=== PATIENT | female | born 1965 | race African-American/Black ===

== ENCOUNTER 2022-10-13 07:44 | Emergency (ER) | payer MEDICARE, MEDICAID ==
[~2022-10-13] VITALS: Ht 165.1 cm; Wt 85.0 kg
[2022-10-13 08:12] LABS: EOSINOPHILS % 1.8 % (0.0-5.0); HEMATOCRIT. 31.5 % (36.0-48.0); HEMOGLOBIN. 10.5 g/dL (12.0-16.0); LYMPHOCYTES % 33.6 % (20.0-50.0); MEAN CORPUSCULAR HEMOGLOBIN 29.7 pg (28.0-32.0); MEAN CORPUSCULAR VOLUME 89.4 fL (81.0-99.0); MEAN PLATELET VOLUME 7.8 fl (7.4-10.4); MONOCYTES % 7.3 % (2.0-8.0); NEUTROPHILS % 56.3 % (40.0-76.0); PLATELET 472 x1000/uL (130-400); RED BLOOD CELL COUNT 3.52 mill/uL (4.2-5.4); RED CELL DISTRIBUTION WIDTH 14.4 % (11.6-14.6)
[2022-10-13 08:17] LABS: CHLORIDE 108 mEq/L (98-107)
[2022-10-13] MEDS ORDERED: MECLIZINE 25MG TABLET PO ONE (09:00)
[2022-10-13] MEDS ORDERED: MECL-159 PO (12:04)
[2022-10-13 12:23] VITALS: BP 127/68
== END 2022-10-13 12:27 | disposition home or self-care (01) ==
LOC: ER 08:08
DX: R42 Dizziness and giddiness (principal); R11.2 Nausea with vomiting, unspecified; E11.9 Type 2 diabetes mellitus without complications; E78.00 Pure hypercholesterolemia, unspecified; I10 Essential (primary) hypertension; F41.9 Anxiety disorder, unspecified; F32.A Depression, unspecified; Z90.710 Acquired absence of both cervix and uterus
CPT/HCPCS: 36415; 70450; 80053; 84484; 85025; 93005; 99285; J8597

== ENCOUNTER 2023-01-12 08:41 | Emergency (ER) | payer MEDICARE, MEDICAID ==
[~2023-01-12] VITALS: Ht 165.1 cm; Wt 87.0 kg
[~2023-01-12 08:41] MED LIST: MECL-159 PO
[2023-01-12 08:56] VITALS: TEMP 98.7; O2SAT 100
[2023-01-12] MEDS ORDERED: KETOROLAC 60MG/2ML VIAL IM STA (10:31)
[2023-01-12 11:29] VITALS: BP 151/65; PULSE 88; RESP 16
[2023-01-12 12:22] LABS: BASOPHILS % 0.7 % (0.0-2.0); EOSINOPHILS % 1.7 % (0.0-5.0); HEMATOCRIT. 31.9 % (36.0-48.0); HEMOGLOBIN. 10.2 g/dL (12.0-16.0); LYMPHOCYTES % 26.8 % (20.0-50.0); MEAN CORPUSCULAR HGB CONC 31.9 g/dL (31.0-37.0); MEAN CORPUSCULAR VOLUME 90.9 fL (81.0-99.0); MEAN PLATELET VOLUME 8.4 fl (7.4-10.4); MONOCYTES % 5.9 % (2.0-8.0); NEUTROPHILS % 64.9 % (40.0-76.0); PLATELET 469 x1000/uL (130-400); RED BLOOD CELL COUNT 3.51 mill/uL (4.2-5.4); RED CELL DISTRIBUTION WIDTH 14.8 % (11.6-14.6)
[2023-01-12 12:32] LABS: CHLORIDE 107 mEq/L (98-107); INDEX HEMOLYSI 1 (1-3); INDEX ICTERIC 1 (1-4); INDEX LIPEMIC 1 (1-3); POTASSIUM 4.5 mEq/L (3.5-5.1); SODIUM 138 mEq/L (136-145)
[2023-01-12 12:50] LABS: CALCIUM 9.3 mg/dL (8.5-10.1); CARBON DIOXIDE 26 mEq/L (21-32); CREATININE 0.8 mg/dL (0.6-1.3); UREA NITROGEN BLOOD 14 mg/dL (7-21)
[2023-01-12 13:31] LABS: CLARITY URINE CLEAR (CLEAR); COLOR URINE YELLOW (YELLOW); GLUCOSE URINE NEGATIVE (NEGATIVE); KETONES URINE NEGATIVE (NEGATIVE); LEUKOCYTE ESTERASE URINE NEGATIVE (NEGATIVE); NITRITE URINE NEGATIVE (NEGATIVE); OCCULT BLOOD URINE NEGATIVE (NEGATIVE); PROTEIN URINE NEGATIVE (NEGATIVE); SPECIFIC GRAVITY URINE 1.011 (1.005-1.030); UROBILINOGEN URINE 0.2 E.U./dL (0.2-1.0)
[2023-01-12 14:32] LABS: GLUCOSE 125 mg/dL (70-105)
== END 2023-01-12 14:28 | disposition home or self-care (01) ==
LOC: ER 08:41
DX: M79.652 Pain in left thigh (principal); M25.552 Pain in left hip; E11.9 Type 2 diabetes mellitus without complications; I10 Essential (primary) hypertension; Z98.890 Other specified postprocedural states
CPT/HCPCS: 99285; 93971; 80048; 81003; 85025; 36415; 96372; J1885

== ENCOUNTER 2023-05-28 09:50 | Emergency (ER) | payer MEDICARE, MEDICAID ==
[~2023-05-28] VITALS: Ht 165.1 cm; Wt 86.0 kg
[~2023-05-28 09:50] MED LIST changes: -MECL-159 PO; +MECL-299 PO
[2023-05-28 09:55] VITALS: O2SAT 100
[2023-05-28] MEDS ORDERED: METHYLPREDNISOLONE SOD SUCC 125MG/2ML (ACT-O-VIAL) IM STA (11:21)
[2023-05-28] MEDS ORDERED: KETOROLAC 60MG/2ML VIAL IM STA (11:21)
[2023-05-28] MEDS ORDERED: NAPR-681 PO (12:47)
[2023-05-28 12:48] VITALS: BP 146/48
[2023-05-28 12:53] VITALS: PULSE 80; RESP 12; TEMP 97.5
== END 2023-05-28 12:54 | disposition home or self-care (01) ==
LOC: ER 09:50
DX: M65.4 Radial styloid tenosynovitis [de Quervain] (principal); E11.9 Type 2 diabetes mellitus without complications; I10 Essential (primary) hypertension
CPT/HCPCS: 99284; 73110; 29125; 96372; J1885; J2930

== ENCOUNTER 2023-09-15 12:12 | Emergency (ER) | payer MEDICARE, MEDICAID ==
[~2023-09-15] VITALS: Ht 165.1 cm; Wt 90.0 kg
[~2023-09-15 12:12] MED LIST changes: +NAPR-681 PO
[2023-09-15 12:18] VITALS: O2SAT 100
[2023-09-15 13:16] LABS: ALANINE AMINOTRANSFERASE 10 IU/L (10-49); ALBUMIN 4.5 g/dL (3.2-4.8); ASPARTATE AMINOTRANSFERASE 18 IU/L (<34); BILIRUBIN TOTAL 0.5 mg/dL (0.1-1.0); CALCIUM 9.1 mg/dL (8.7-10.4); CARBON DIOXIDE 21 mEq/L (21-32); CHLORIDE 110 mEq/L (98-107); CREATININE 0.9 mg/dL (0.6-1.0); GLUCOSE 103 mg/dL (70-105); POTASSIUM 4.6 mEq/L (3.5-5.1); PROTEIN TOTAL 7.8 g/dL (6.0-8.3); SODIUM 139 mEq/L (136-145); UREA NITROGEN BLOOD 9 mg/dL (9-23)
[2023-09-15 13:18] LABS: BASOPHILS % 0.6 % (0.0-2.0); DIFFERENTIAL COMMENT 0; EOSINOPHILS % 1.6 % (0.0-5.0); HEMATOCRIT. 34.2 % (36.0-48.0); HEMOGLOBIN. 10.1 g/dL (12.0-16.0); MEAN CORPUSCULAR HEMOGLOBIN 29.9 pg (28.0-32.0); MEAN CORPUSCULAR HGB CONC 29.5 g/dL (31.0-37.0); MEAN CORPUSCULAR VOLUME 101.1 fL (81.0-99.0); MEAN PLATELET VOLUME 9.1 fl (7.4-10.4); MONOCYTES % 5.8 % (2.0-8.0); PLATELET 227 x1000/uL (130-400); RED BLOOD CELL COUNT 3.38 mill/uL (4.2-5.4); RED CELL DISTRIBUTION WIDTH 16.4 % (11.6-14.6); WHITE BLOOD COUNT 10.8 x1000/uL (4.5-11.0)
[2023-09-15] MEDS ORDERED: MAGNESIUM/ALUMINUM HYDROXIDE/SIMETHICONE 30ML UDC PO ONE (14:15)
[2023-09-15] MEDS ORDERED: ONDANSETRON 4MG ODT PO ONE (14:15)
[2023-09-15] MEDS ORDERED: PANTOPRAZOLE 40MG DR TABLET PO ONE (14:15)
[2023-09-15 14:50] LABS: CLARITY URINE CLEAR (CLEAR); COLOR URINE YELLOW (YELLOW); GLUCOSE URINE NEGATIVE (NEGATIVE); KETONES URINE NEGATIVE (NEGATIVE); LEUKOCYTE ESTERASE URINE NEGATIVE (NEGATIVE); NITRITE URINE NEGATIVE (NEGATIVE); OCCULT BLOOD URINE NEGATIVE (NEGATIVE); PROTEIN URINE NEGATIVE (NEGATIVE); SPECIFIC GRAVITY URINE 1.018 (1.005-1.030)
[2023-09-15] MEDS: MAGNESIUM/ALUMINUM HYDROXIDE/SIMETHICONE 30ML UDC PO NR (17:01)
[2023-09-15] MEDS: PANTOPRAZOLE 40MG DR TABLET PO NR (17:01)
[2023-09-15] MEDS: ONDANSETRON 4MG ODT PO NR (17:01)
[2023-09-15] MEDS ORDERED: MAG-55 MT (17:28)
[2023-09-15 18:17] VITALS: BP 145/53; PULSE 67; RESP 18; TEMP 98.2
== END 2023-09-15 18:25 | disposition home or self-care (01) ==
LOC: ER 13:24
DX: K21.9 Gastro-esophageal reflux disease without esophagitis (principal); E11.9 Type 2 diabetes mellitus without complications; I10 Essential (primary) hypertension
CPT/HCPCS: 99285; 71045; 80053; 81003; 83690; 85025; 36415; 93005; Q0162

== ENCOUNTER 2024-05-26 08:24 | Emergency (ER) | payer MEDICARE, MEDICAID ==
[~2024-05-26] VITALS: Ht 167.6 cm; Wt 91.0 kg
[~2024-05-26 08:24] MED LIST changes: +MAG-55 MT
[2024-05-26 08:36] VITALS: O2SAT 99
[2024-05-26] MEDS: SODIUM CHLORIDE 0.9% 1,000 ML IV ONE (09:21)
[2024-05-26 09:29] VITALS: TEMP 98.7
[2024-05-26] MEDS: MECLIZINE 25MG TABLET PO ONE (09:29)
[2024-05-26] MEDS: ACETAMINOPHEN 325MG TABLET PO ONE (09:29)
[2024-05-26 09:32] LABS: BASOPHILS % 0.8 % (0.0-2.0); EOSINOPHILS % 1.8 % (0.0-5.0); HEMATOCRIT. 31.8 % (36.0-48.0); HEMOGLOBIN. 10.3 g/dL (12.0-16.0); LYMPHOCYTES % 27.6 % (20.0-50.0); MEAN CORPUSCULAR HEMOGLOBIN 29.6 pg (28.0-32.0); MEAN CORPUSCULAR HGB CONC 32.5 g/dL (31.0-37.0); MEAN CORPUSCULAR VOLUME 91.1 fL (81.0-99.0); MEAN PLATELET VOLUME 8.4 fl (7.4-10.4); MONOCYTES % 7.2 % (2.0-8.0); NEUTROPHILS % 62.6 % (40.0-76.0); PLATELET 441 x1000/uL (130-400); RED BLOOD CELL COUNT 3.49 mill/uL (4.2-5.4); RED CELL DISTRIBUTION WIDTH 14.4 % (11.6-14.6); WHITE BLOOD COUNT 9.5 x1000/uL (4.5-11.0)
[2024-05-26 09:38] LABS: CHLORIDE 106 mEq/L (98-107); POTASSIUM 4.5 mEq/L (3.5-5.1); SODIUM 140 mEq/L (136-145)
[2024-05-26 09:39] LABS: CARBON DIOXIDE 27 mEq/L (21-32)
[2024-05-26 09:40] LABS: CALCIUM 9.8 mg/dL (8.7-10.4)
[2024-05-26 09:44] LABS: GLUCOSE 130 mg/dL (70-105); UREA NITROGEN BLOOD 19 mg/dL (9-23)
[2024-05-26 09:54] LABS: TROPONIN I HIGH SENSITIVITY < 4 ng/L (3.0-34)
[2024-05-26 10:00] LABS: CLARITY URINE CLEAR (CLEAR); COLOR URINE YELLOW (YELLOW); GLUCOSE URINE NEGATIVE (NEGATIVE); KETONES URINE NEGATIVE (NEGATIVE); LEUKOCYTE ESTERASE URINE NEGATIVE (NEGATIVE); NITRITE URINE NEGATIVE (NEGATIVE); OCCULT BLOOD URINE NEGATIVE (NEGATIVE); PROTEIN URINE NEGATIVE (NEGATIVE); SPECIFIC GRAVITY URINE 1.012 (1.005-1.030); UROBILINOGEN URINE 0.2 E.U./dL (0.2-1.0)
[2024-05-26] MEDS: DIPHENHYDRAMINE 50MG/ML VIAL IV ONE (10:07)
[2024-05-26] MEDS: METOCLOPRAMIDE HCL 10MG/2ML VIAL IV ONE (10:08)
[2024-05-26] MEDS: KETOROLAC 15MG/ML VIAL IV ONE (10:08)
[2024-05-26] MEDS ORDERED: ONDA-239 PO (10:47)
[2024-05-26] MEDS ORDERED: MECL-115 PO (10:47)
[2024-05-26 11:00] VITALS: BP 137/45; PULSE 72; RESP 15; O2SAT 100
== END 2024-05-26 11:02 | disposition home or self-care (01) ==
LOC: ER 08:39
DX: R42 Dizziness and giddiness (principal); I10 Essential (primary) hypertension; E11.9 Type 2 diabetes mellitus without complications
CPT/HCPCS: 99284; 96374; 96361; 96375; 80048; 81003; 85025; 84484; 36415; 93005; J8597; J1200; J1885; J2765; J7030

== ENCOUNTER 2024-08-07 10:05 | Emergency (ER) | payer MEDICARE, MEDICAID ==
[~2024-08-07] VITALS: Ht 165.1 cm; Wt 86.0 kg
[~2024-08-07 10:05] MED LIST changes: +MECL-115 PO; +ONDA-239 PO
[2024-08-07 10:14] VITALS: O2SAT 98
[2024-08-07 10:54] VITALS: TEMP 36.8; O2SAT 99
[2024-08-07 12:00] VITALS: BP 154/55; PULSE 83; RESP 16
[2024-08-07] MEDS: KETOROLAC 30MG/ML VIAL IM ONE (12:00)
[2024-08-07] MEDS ORDERED: NAPR-681 PO (14:31)
== END 2024-08-07 16:49 | disposition home or self-care (01) ==
LOC: ER 10:08
DX: M79.605 Pain in left leg (principal); E11.40 Type 2 diabetes mellitus with diabetic neuropathy, unspecified; Z90.710 Acquired absence of both cervix and uterus
CPT/HCPCS: 99285; 93971; 96372; J1885

== ENCOUNTER → 2024-09-01 | Day surgery (SDC) | payer MEDICARE, MEDICAID ==
[~2024-09-01] VITALS: Ht 162.6 cm; Wt 86.2 kg
[~2024-09-01] MED LIST changes: +ACETAMINOPHEN 325MG TABLET PO PRN; +DEXAMETHASONE 4MG/ML 1ML VIAL ONE; +DEXT 5%/0.45% NACL KCL 20MEQ/L 1,000 ML IV SCH; +EPINEPHRINE 1:1000 1 MG/ML AMP ONE; +FENTANYL CITRATE/PF 50MCG/ML 2ML VIAL ONE; +GABA-290 PO; +GLIP10TA17 PO; +HYDROCODONE/ACETAMINOPHEN 5/325MG TABLET PO PRN; +IBUP-2030 PO; +LIDOCAINE HCL/EPINEPHRINE 1%-EPI 1:100,000 20ML VIAL ONE; +METF-416 PO; +METO-293 PO; +MIDAZOLAM HCL 2 MG/2 ML VIAL ONE; +MORPHINE SULFATE 4 MG/ML INJ (FOR IV/IM USE) IV PRN; +NALOXONE HCL 0.4MG/ML VIAL IV PRN; +ONDANSETRON HCL 4MG/2ML INJ IV PRN; +ONDANSETRON HCL 4MG/2ML INJ ONE; +OXYC-100 MT; +PIOG15TA6 PO; +POLYMYXIN B SULFATE 500000 UNITS/VIAL ONE; +PROPOFOL 200MG/20ML VIAL IV ONE; +PROT40 PO; +ROCURONIUM BROMIDE 10MG/ML VIAL 5ML IV ONE; +ROPIVACAINE HCL 1% 20 ML VIAL EPI ONE; +SODIUM CHLORIDE 0.9% 1,000 ML IV SCH; +SODIUM CHLORIDE 0.9% 3ML FLUSH IVF SCH; +SUGAMMADEX SODIUM 200MG/2ML VIAL IV ONE; +TIZA-204 PO; +VANCOMYCIN HCL 1GM VIAL ONE
[2024-09-01 13:32] VITALS: BP 163/90; PULSE 75; RESP 14
[2024-09-01] MEDS: MORPHINE SULFATE 2 MG/ML INJ (NOT FOR IM USE) IV PRN (13:32)
== END | disposition home or self-care (01) ==
LOC: OR 07:54
DX: M75.101 Unspecified rotator cuff tear or rupture of right shoulder, not specified as traumatic (principal); S46.211A Strain of muscle, fascia and tendon of other parts of biceps, right arm, initial encounter; E11.65 Type 2 diabetes mellitus with hyperglycemia; K21.9 Gastro-esophageal reflux disease without esophagitis; Z86.2 Personal history of diseases of the blood and blood-forming organs and certain disorders involving the immune mechanism; Z79.84 Long term (current) use of oral hypoglycemic drugs; Z79.899 Other long term (current) drug therapy; Z98.890 Other specified postprocedural states; X58.XXXA Exposure to other specified factors, initial encounter; Y93.89 Activity, other specified; Y92.89 Other specified places as the place of occurrence of the external cause; Y99.8 Other external cause status
CPT/HCPCS: 23430; 29827; 82962; 29826; C1713 ×4; J3010; J1100; J3490 ×3; J2004; J2250; J2405; J2704; J2795; J3370; J2270; A4565

== ENCOUNTER 2025-04-10 09:09 | Emergency (ER) | payer MEDICARE, MEDICAID ==
[~2025-04-10] VITALS: Ht 165.1 cm; Wt 85.9 kg
[~2025-04-10 09:09] MED LIST changes: -ACETAMINOPHEN 325MG TABLET PO PRN; -DEXAMETHASONE 4MG/ML 1ML VIAL ONE; -DEXT 5%/0.45% NACL KCL 20MEQ/L 1,000 ML IV SCH; -EPINEPHRINE 1:1000 1 MG/ML AMP ONE; -FENTANYL CITRATE/PF 50MCG/ML 2ML VIAL ONE; -HYDROCODONE/ACETAMINOPHEN 5/325MG TABLET PO PRN; -LIDOCAINE HCL/EPINEPHRINE 1%-EPI 1:100,000 20ML VIAL ONE; -MAG-55 MT; -MECL-115 PO; -MECL-299 PO; -MIDAZOLAM HCL 2 MG/2 ML VIAL ONE; -MORPHINE SULFATE 4 MG/ML INJ (FOR IV/IM USE) IV PRN; -NALOXONE HCL 0.4MG/ML VIAL IV PRN; -NAPR-681 PO; -ONDA-239 PO; -ONDANSETRON HCL 4MG/2ML INJ IV PRN; -ONDANSETRON HCL 4MG/2ML INJ ONE; -POLYMYXIN B SULFATE 500000 UNITS/VIAL ONE; -PROPOFOL 200MG/20ML VIAL IV ONE; -ROCURONIUM BROMIDE 10MG/ML VIAL 5ML IV ONE; -ROPIVACAINE HCL 1% 20 ML VIAL EPI ONE; -SODIUM CHLORIDE 0.9% 1,000 ML IV SCH; -SODIUM CHLORIDE 0.9% 3ML FLUSH IVF SCH; -SUGAMMADEX SODIUM 200MG/2ML VIAL IV ONE; +TRAM50TA3 MT; -VANCOMYCIN HCL 1GM VIAL ONE
[2025-04-10 09:24] VITALS: O2SAT 100
[2025-04-10 09:59] LABS: BASOPHILS % 1.0 % (0.0-2.0); EOSINOPHILS % 1.7 % (0.0-5.0); HEMATOCRIT. 34.5 % (36.0-48.0); HEMOGLOBIN. 11.3 g/dL (12.0-16.0); LYMPHOCYTES % 30.8 % (20.0-50.0); MEAN PLATELET VOLUME 8.1 fl (7.4-10.4); MONOCYTES % 6.0 % (2.0-8.0); NEUTROPHILS % 60.5 % (40.0-76.0); PLATELET 437 x1000/uL (130-400); RED BLOOD CELL COUNT 3.80 mill/uL (4.2-5.4); RED CELL DISTRIBUTION WIDTH 14.5 % (11.6-14.6)
[2025-04-10 10:16] LABS: CREATININE 1.1 mg/dL (0.6-1.0); UREA NITROGEN BLOOD 6 mg/dL (9-23)
[2025-04-10 10:16] LABS: CLARITY URINE TURBID (CLEAR); COLOR URINE YELLOW (YELLOW); GLUCOSE URINE NEGATIVE (NEGATIVE); KETONES URINE TRACE (NEGATIVE); LEUKOCYTE ESTERASE URINE 3+ (NEGATIVE); NITRITE URINE NEGATIVE (NEGATIVE); OCCULT BLOOD URINE NEGATIVE (NEGATIVE); PH URINE 5.0 (4.5-8.0); PROTEIN URINE 1+ (NEGATIVE); SPECIFIC GRAVITY URINE 1.014 (1.005-1.030); UROBILINOGEN URINE 1.0 E.U./dL (0.2-1.0)
[2025-04-10] MEDS ORDERED: CEFTRIAXONE 1GM/50ML 50 ML IV ONE (10:30)
[2025-04-10] MEDS ORDERED: SODIUM CHLORIDE 0.9% (SEPSIS BOLUS) IV ONE (10:30)
[2025-04-10 11:08] LABS: SQUAMOUS EPITHELIAL CELL URINE 3+ /lpf (RARE/1+)
[2025-04-10 11:09] LABS: WBC URINE 25-50 /hpf (0-2)
[2025-04-10 11:10] LABS: BACTERIA URINE 3+; RBC URINE NONE SEEN /hpf (0-2)
[2025-04-10 11:13] LABS: HYALINE CASTS URINE 0-5 /lpf
[2025-04-10] MEDS ORDERED: DOCU-422 MT (11:33)
[2025-04-10] MEDS ORDERED: NITR-87 MT (11:33)
[2025-04-10 12:23] VITALS: BP 155/59; PULSE 61; RESP 12; TEMP 36.8; O2SAT 99
== END 2025-04-10 12:25 | disposition home or self-care (01) ==
LOC: ER 11:18
DX: N39.0 Urinary tract infection, site not specified (principal); R10.84 Generalized abdominal pain; E11.9 Type 2 diabetes mellitus without complications; I10 Essential (primary) hypertension; Z79.84 Long term (current) use of oral hypoglycemic drugs; Z79.899 Other long term (current) drug therapy; Z90.710 Acquired absence of both cervix and uterus
CPT/HCPCS: 36415; 74176; 80048; 81003; 83605; 84145; 85025; 93005; 99291; J7030